=== PATIENT | female | born 1980 | race Hispanic/Latino ===

== ENCOUNTER 2018-07-17 11:28 | Emergency (ER) | payer OTHER ==
[2018-07-17] MEDS ORDERED: IBUPROFEN 600 MG TABLET ONE (12:47)
[2018-07-17] MEDS ORDERED: ACETAMINOPHEN-CODEINE 300/30MG TAB ONE (12:48)
[2018-07-17] MEDS ORDERED: CYCLOBENZAPRINE HCL 10 MG TABLET ONE (12:48)
== END 2018-07-17 12:59 | disposition home or self-care (01) ==
LOC: EDH 11:28
DX: S13.4XXA Sprain of ligaments of cervical spine, initial encounter (principal); S40.012A Contusion of left shoulder, initial encounter; M54.5 Low back pain; M62.838 Other muscle spasm; Z90.710 Acquired absence of both cervix and uterus; Z98.890 Other specified postprocedural states; V49.49XA Driver injured in collision with other motor vehicles in traffic accident, initial encounter; Y93.89 Activity, other specified; Y92.410 Unspecified street and highway as the place of occurrence of the external cause; Y99.8 Other external cause status
CPT/HCPCS: 72040; 72100; 73030

== ENCOUNTER → 2018-08-06 | Outpatient (CLI) | payer OTHER | END | disposition home or self-care (01) | LOC: RAH 10:58 | PROVIDERS: ATTEND Internal Medicine Gastroenterology | DX: R10.13 Epigastric pain (principal) | CPT/HCPCS: 78227; A9537 ==